=== PATIENT | male | born 1960 | race Caucasian/White ===

== ENCOUNTER → 2016-09-08 | Outpatient (CLI) | payer BC ==
--- NOTE | 2016-09-08 09:46 | MRI ---
HISTORY: Cervical radiculopathy Study: MRI cervical spine without contrast Comparison: None Technique: Multiplanar multisequence MRI of the cervical spine was obtained utilizing standard depar tmental protocol. Findings: Alignment of the cervical spine is maintained. No abnormal signal characteristics of the bone marro w can be identified. No evidence for fracture or significant bone or edema can be seen. The surrou nding soft tissues are unremarkable. The cervical spinal cord is normal in size and configuration a nd without foci of abnormal signal. C2 -- C3: No evidence for compressive disc disease. The neural foramina are patent. C3 -- C4: There is disc degeneration with broad-based osteophyte formation effacing the thecal sac a nd contributing to mild canal stenosis but no significant cord compression. The neural foramina are mildly narrowed bilaterally. C4 -- C5: Broad-based and central disc protrusion effaces the thecal sac and contribute to moderate canal stenosis and mild cord compression. The neural foramina are patent. C5 -- C6: Broad-based disc protrusion effaces the thecal sac and contributes to mild cord compressio n and moderate canal stenosis. The neural foramina are patent. C6 -- C7: Mild disk osteophyte formation causes minimal thecal sac effacement but no significant can al stenosis or cord compression. The neural foramina are patent. C7 -- T1: No evidence for compressive disc disease. The neural foramina are patent. IMPRESSION: As above Reported By:
== END ==
LOC: RAD 08:34
PROVIDERS: ATTEND Specialist
DX: M54.12 Radiculopathy, cervical region (principal)
CPT/HCPCS: 72141